=== PATIENT | female | born 1980 | race Caucasian/White ===

== ENCOUNTER 2017-01-15 14:43 | Inpatient (IN) | payer BC ==
[~2017-01-15] VITALS: Ht 157.5 cm; Wt 88.0 kg
[2017-01-22] MEDS ORDERED: OXYTOCIN 30U/ 0.9% NaCL 500ML 500 ML IV ONE (12:52)
[2017-01-22] MEDS ORDERED: ONDANSETRON 2MG/ML, 2ML IVPush PRN (13:00)
[2017-01-22] MEDS ORDERED: SODIUM CHLORIDE FLUSH 10ML SYR IVF PRN (13:00)
[2017-01-22] MEDS ORDERED: FENTANYL PF 100 MCG/2ML IV PRN (13:00)
[2017-01-22] MEDS ORDERED: TERBUTALINE 1 MG/ML, 1ML IVPush PRN (13:00)
[2017-01-22] MEDS ORDERED: FENTANYL PF 100 MCG/2ML IVPush PRN (13:00)
[2017-01-22] MEDS: PLEASE ENTER HEIGHT AND WEIGHT MC SCH ×2 (13:30→21:30)
[2017-01-22 13:54] VITALS: BP 120/69
[2017-01-22] MEDS ORDERED: VALA10004 PO (14:16)
[2017-01-22] MEDS ORDERED: PREN1TAB69 PO (14:16)
[2017-01-22] MEDS ORDERED: AMPICILLIN 2 GM in SODIUM CHLORIDE 0.9% 100 ML IVPB STA (14:21)
[2017-01-22] MEDS: LACTATED RINGERS 1,000 ML IV SCH ×3 (14:26→22:47)
[2017-01-22 14:27] LABS: HEMOGLOBIN 12.3 g/dL (11.7-16.4)
[2017-01-22] MEDS: AMPICILLIN 1 GM in SODIUM CHLORIDE 0.9% 50 ML IVPB SCH ×2 (18:30→22:35)
[2017-01-22] MEDS: D5%-LACTATED RINGERS 1,000 ML IV SCH ×2 (19:54→20:52)
[2017-01-22] MEDS ORDERED: CALCIUM CARBONATE 500 MG TAB.CHEW ONE ×2 (20:08→23:34)
[2017-01-22] MEDS ORDERED: NEWBORN KIT ONE (22:01)
[2017-01-22] MEDS ORDERED: OXYTOCIN 30U/ 0.9% NaCL 500ML 500 ML ONE (22:01)
[2017-01-22] MEDS ORDERED: FENTANYL/BUPIV./NS/PF 250 ML EPIDCONT ONE ×2 (22:16→22:18)
[2017-01-22] MEDS ORDERED: LIDOCAINE 1%, 20ML ONE (22:18)
[2017-01-22] MEDS ORDERED: LIDOCAINE/PF 1.5%-EPI 1:200K, 30ML ONE (22:18)
[2017-01-22] MEDS ORDERED: FENTANYL/BUPIV./NS/PF 250 ML EPIDCONT SCH (22:47)
[2017-01-22] MEDS ORDERED: EPHEDRINE 50 MG/ML, 1ML IVPush PRN (23:00)
[2017-01-22] MEDS ORDERED: NALOXONE 0.4 MG/ML, 1ML IVPush PRN (23:00)
[2017-01-22] MEDS ORDERED: LACTATED RINGERS 1,000 ML IVBOLUS PRN (23:00)
[2017-01-23] MEDS: AMPICILLIN 1 GM in SODIUM CHLORIDE 0.9% 50 ML IVPB SCH ×2 (02:00→06:00)
[2017-01-23] MEDS ORDERED: TERBUTALINE 1 MG/ML, 1ML ONE (02:02)
[2017-01-23] MEDS ORDERED: ONDANSETRON 2MG/ML, 2ML ONE (03:42)
[2017-01-23] MEDS ORDERED: METOCLOPRAMIDE 5 MG/ML, 2ML ONE (03:42)
[2017-01-23] MEDS ORDERED: CEFAZOLIN 1,000 MG ONE (03:42)
[2017-01-23] MEDS ORDERED: OXYTOCIN 10 UNITS/ML, 1ML ONE ×2 (03:42)
[2017-01-23] MEDS ORDERED: KETOROLAC 30 MG/1 ML ONE (03:42)
[2017-01-23] MEDS ORDERED: MEPERIDINE/PF 50 MG/ML ONE (04:07)
[2017-01-23] MEDS ORDERED: LACTATED RINGERS 1,000 ML IV SCH (04:50)
[2017-01-23] MEDS: LACTATED RINGERS 1,000 ML IV SCH ×5 (04:52→20:50)
[2017-01-23] MEDS: D5%-LACTATED RINGERS 1,000 ML IV SCH (04:52)
[2017-01-23] MEDS ORDERED: HYDROmorphone 2 MG/ML, 1ML IVPush PRN (05:00)
[2017-01-23] MEDS ORDERED: CALCIUM CARBONATE 500 MG TAB.CHEW PO PRN ×2 (05:00)
[2017-01-23] MEDS ORDERED: MISOPROSTOL 200 MCG TABLET PR PRN (05:00)
[2017-01-23] MEDS ORDERED: ONDANSETRON 2MG/ML, 2ML IV PRN (05:00)
[2017-01-23] MEDS ORDERED: OXYcodone IR 5MG TABLET PO PRN (05:00)
[2017-01-23] MEDS: PLEASE ENTER HEIGHT AND WEIGHT MC SCH (05:30)
[2017-01-23 06:20] VITALS: BP 127/66
[2017-01-23] MEDS: OXYTOCIN 30U/ 0.9% NaCL 500ML 500 ML IV SCH ×2 (07:44→13:38)
[2017-01-23] MEDS: PRENATAL VIT/IRON/FA 1 EACH TABLET PO SCH (08:08)
[2017-01-23] MEDS: OXYcodone/APAP 5/325MG TABLET PO PRN ×4 (08:08→21:51)
[2017-01-23 08:28] VITALS: BP 116/68
[2017-01-23] MEDS: DOCUSATE 100 MG CAPSULE PO PRN (10:50)
[2017-01-23] MEDS: KETOROLAC 30 MG/1 ML IV SCH ×3 (10:50→22:28)
[2017-01-23 12:05] VITALS: BP 100/60
[2017-01-23 12:20] LABS: HEMOGLOBIN 10.4 g/dL (11.7-16.4)
[2017-01-23] MEDS: SIMETHICONE 80 MG CHEW TAB PO PRN (13:01)
[2017-01-23 16:00] VITALS: BP 94/65
[2017-01-23 19:15] VITALS: BP 105/67
[2017-01-24 00:10] VITALS: BP 104/64
[2017-01-24] MEDS: OXYTOCIN 30U/ 0.9% NaCL 500ML 500 ML IV SCH (00:50)
[2017-01-24] MEDS: DOCUSATE 100 MG CAPSULE PO PRN ×2 (01:38→20:56)
[2017-01-24] MEDS: OXYcodone IR 5MG TABLET PO PRN ×2 (01:38→06:19)
[2017-01-24 04:00] VITALS: BP 100/62
[2017-01-24] MEDS: KETOROLAC 30 MG/1 ML IV SCH (04:28)
[2017-01-24] MEDS: LACTATED RINGERS 1,000 ML IV SCH (04:50)
[2017-01-24] MEDS: SIMETHICONE 80 MG CHEW TAB PO PRN ×2 (06:23→20:56)
[2017-01-24 07:25] VITALS: BP 98/67
[2017-01-24] MEDS: PRENATAL VIT/IRON/FA 1 EACH TABLET PO SCH (08:45)
[2017-01-24] MEDS ORDERED: POLYETHYLENE GLYCOL 17 GM PACKET PO ONE (09:00)
[2017-01-24] MEDS: IBUPROFEN 600 MG TABLET PO PRN ×3 (09:37→23:02)
[2017-01-24] MEDS: OXYcodone/APAP 5/325MG TABLET PO PRN ×3 (11:51→20:56)
[2017-01-24 21:02] VITALS: BP 113/62
[2017-01-25] MEDS ORDERED: OXYC-302 PO (01:05)
[2017-01-25] MEDS ORDERED: IBUP800T PO (01:05)
[2017-01-25] MEDS ORDERED: ONDA4TAB7 PO (01:06)
[2017-01-25] MEDS: OXYcodone/APAP 5/325MG TABLET PO PRN ×2 (02:22→06:50)
[2017-01-25] MEDS: IBUPROFEN 600 MG TABLET PO PRN (06:50)
[2017-01-25] MEDS: PRENATAL VIT/IRON/FA 1 EACH TABLET PO SCH (06:50)
[2017-01-25] MEDS: DOCUSATE 100 MG CAPSULE PO PRN (06:50)
[2017-01-25 07:24] VITALS: BP 104/76
== END 2017-01-25 10:29 | disposition home or self-care (01) | DRG 766 ==
LOC: LDIP 01-22 12:22 → 2NW 01-23 05:52
PROVIDERS: ADMIT Obstetrics & Gynecology; ATTEND Obstetrics & Gynecology
PROC: 10D00Z1 Extraction of Products of Conception, Low, Open Approach (ICD-10-PCS; principal; 2017-01-23)
PROC: 0U7C7ZZ Dilation of Cervix, Via Natural or Artificial Opening (ICD-10-PCS; 2017-01-23)
PROC: 10907ZC Drainage of Amniotic Fluid, Therapeutic from Products of Conception, Via Natural or Artificial Opening (ICD-10-PCS; 2017-01-23)
DX: O76 Abnormality in fetal heart rate and rhythm complicating labor and delivery (principal); O99.824 Streptococcus B carrier state complicating childbirth; O34.211 Maternal care for low transverse scar from previous cesarean delivery; O77.0 Labor and delivery complicated by meconium in amniotic fluid; O62.0 Primary inadequate contractions; O66.41 Failed attempted vaginal birth after previous cesarean delivery; O48.0 Post-term pregnancy; O99.344 Other mental disorders complicating childbirth; O62.4 Hypertonic, incoordinate, and prolonged uterine contractions; O99.214 Obesity complicating childbirth; O32.4XX0 Maternal care for high head at term, not applicable or unspecified; E28.2 Polycystic ovarian syndrome; F32.9 Major depressive disorder, single episode, unspecified; E66.9 Obesity, unspecified; Z37.0 Single live birth; Z3A.41 41 weeks gestation of pregnancy; Z68.35 Body mass index [BMI] 35.0-35.9, adult
CPT/HCPCS: 36415; 82803; 85025; 86850; 86900; J0290; J0690; J1885; J2175; J2405; J3490; J2590; J2765; J3010; J3105; J7120; J7121

== ENCOUNTER 2020-07-05 14:29 | Day surgery (SDC) | payer BC ==
[~2020-07-05] VITALS: Ht 157.5 cm; Wt 77.8 kg
[~2020-07-05 14:29] MED LIST: IBUP-1223 PO; METHYLERGONOVINE 0.2 MG/ML IM ONE; MISOPROSTOL 200 MCG TABLET ONE; ONDA4TAB7 PO; OXYC-302 PO; OXYTOCIN 10 UNITS/ML, 1ML ONE; PREN1TAB69 PO; SILVER NITRATE STICK TP ONE; VALA10004 PO
[2020-07-05] MEDS ORDERED: LACTATED RINGERS 1,000 ML IV SCH ×2 (14:45→15:01)
[2020-07-05] MEDS ORDERED: CHLORHEXIDINE 15 ML UDC MM ONE ×2 (15:00)
[2020-07-05 15:18] LABS: BASOPHILS # (AUTO) 0.07 x10^3/uL (0-0.1); BASOPHILS % (AUTO) 1 % (0-1); EOSINOPHILS # (AUTO) 0.06 x10^3/uL (0-0.4); EOSINOPHILS % (AUTO) 1 % (1-7); LYMPHOCYTES # (AUTO) 2.17 x10^3/uL (1-3.4); LYMPHOCYTES % (AUTO) 21 % (22-44); MD NO; MEAN CORPUSCULAR HEMOGLOBIN 30.2 pg (27.0-34.8); MEAN CORPUSCULAR HGB CONC 34.1 g/dL (32.4-35.8); MEAN CORPUSCULAR VOLUME 88.5 fL (80-100); MEAN PLATELET VOLUME 7.7 fL (7.4-10.4); MONOCYTES # (AUTO) 0.53 x10^3/uL (0.2-0.8); MONOCYTES % (AUTO) 5 % (2-9); NEUTROPHILS # (AUTO) 7.55 x10^3/uL (1.8-6.8); NEUTROPHILS % (AUTO) 73 % (42-75); PLATELET COUNT 378 x10^3/uL (130-400); RED BLOOD COUNT 4.15 x10^6/uL (3.82-5.3); RED CELL DISTRIBUTION WIDTH 13.2 % (9.6-15.2)
[2020-07-05 15:30] VITALS: BP 110/72
[2020-07-05] MEDS ORDERED: SCOPOLAMINE 1MG PATCH TD SCH (15:30)
[2020-07-05] MEDS ORDERED: ONDANSETRON 2MG/ML, 2ML ONE (16:35)
[2020-07-05] MEDS ORDERED: MIDAZOLAM 1 MG/ML, 2ML ONE (16:35)
[2020-07-05] MEDS ORDERED: PROPOFOL 50 ML ONE (16:35)
[2020-07-05] MEDS ORDERED: DEXAMETHASONE 4 MG/ML, 1ML ONE (16:35)
[2020-07-05] MEDS ORDERED: FENTANYL PF 250 MCG/5ML ONE (16:35)
[2020-07-05] MEDS ORDERED: KETOROLAC 30 MG/1 ML ONE (17:30)
[2020-07-05] MEDS ORDERED: ACETAMINOPHEN 325 MG TABLET PO PRN (18:00)
[2020-07-05] MEDS ORDERED: PROMETHAZINE 25 MG/ML, 1ML IVPush PRN (18:00)
[2020-07-05] MEDS ORDERED: LABETALOL 5MG/ML, 20ML IV PRN (18:00)
[2020-07-05] MEDS ORDERED: DIAZEPAM 5 MG/ML, 2ML IVPush PRN (18:00)
[2020-07-05] MEDS ORDERED: EPHEDRINE 50 MG/ML, 1ML IVPush PRN (18:00)
[2020-07-05] MEDS ORDERED: FENTANYL PF 100 MCG/2ML IV PRN (18:00)
[2020-07-05] MEDS ORDERED: ONDANSETRON 2MG/ML, 2ML IVPush PRN (18:00)
[2020-07-05] MEDS ORDERED: DIPHENHYDRAMINE 50 MG/ML, 1ML IVPush PRN (18:00)
[2020-07-05] MEDS ORDERED: HYDROmorphone 1 MG/ML, 1ML INJ IVPush PRN (18:00)
[2020-07-05] MEDS ORDERED: OXYcodone 5 MG/5 ML ORAL.SOL UDC PO PRN (18:00)
[2020-07-05] MEDS ORDERED: EPHEDRINE 50 MG/ML, 1ML IM PRN (18:00)
[2020-07-05] MEDS ORDERED: MEPERIDINE/PF 25MG/0.5ML IVPush PRN (18:00)
[2020-07-05 20:12] VITALS: BP 95/59
[2020-07-05] MEDS ORDERED: IBUP-653 PO (20:32)
[2020-07-05] MEDS ORDERED: VALA10004 PO (20:34)
== END 2020-07-05 21:10 | disposition home or self-care (01) ==
LOC: OR 14:29 → 4NE 20:00 → OR 21:10
PROVIDERS: ATTEND Obstetrics & Gynecology
DX: O02.1 Missed abortion (principal); Z20.828 Contact with and (suspected) exposure to other viral communicable diseases; Z79.899 Other long term (current) drug therapy; Z98.890 Other specified postprocedural states; Z80.41 Family history of malignant neoplasm of ovary; Z83.42 Family history of familial hypercholesterolemia
CPT/HCPCS: 36415; 59820; 85025; 86850; 86900; 87635; 88305; J1100; J1885; J2250; J2405; J2590; J2704; J3010; G0378; J2210